=== PATIENT | female | born 2000 | race Caucasian/White ===

== ENCOUNTER 2024-11-25 07:40 | Outpatient (CLI) | payer OTHER, SELFPAY ==
[2024-11-25 07:50] VITALS: RESP 17; BMI 27.8
[2024-11-25 08:07] VITALS: BP 124/64; PULSE 79
[2024-11-25 08:22] VITALS: BP 125/63; PULSE 90
== END 2024-11-25 08:26 | disposition home or self-care (01) ==
LOC: OPOB 07:43 → OBGYN 07:44
PROVIDERS: PCP Family Medicine; Visit Provider Family Medicine
DX: O36.8190 Decreased fetal movements, unspecified trimester, not applicable or unspecified (principal); Z3A.00 Weeks of gestation of pregnancy not specified; R42 Dizziness and giddiness
CPT/HCPCS: 59025; 99211; Q0162

== ENCOUNTER 2024-12-16 21:11 | Outpatient (CLI) | payer OTHER, SELFPAY ==
[2024-12-16 21:16] VITALS: BP 118/70; PULSE 73; RESP 18; TEMP 36.1
[2024-12-16 22:36] VITALS: BP 127/67; PULSE 81
== END 2024-12-16 23:07 | disposition home or self-care (01) ==
LOC: OPOB 21:11 → OBGYN 21:12
PROVIDERS: PCP Family Medicine; Visit Provider Family Medicine
DX: O26.899 Other specified pregnancy related conditions, unspecified trimester (principal); Z3A.00 Weeks of gestation of pregnancy not specified; R10.9 Unspecified abdominal pain
CPT/HCPCS: 59025; 99211

== ENCOUNTER 2024-12-18 12:18 | Outpatient (CLI) | payer OTHER, SELFPAY ==
[2024-12-18 12:20] VITALS: BMI 28.5
[2024-12-18 12:31] VITALS: BP 134/72; PULSE 103
[2024-12-18 12:54] LABS: Nitrazine Paper, PH Negative
[2024-12-18 13:06] VITALS: BP 131/78; PULSE 92
[2024-12-18 13:36] VITALS: BP 124/65; PULSE 79
[2024-12-18 13:45] VITALS: BP 124/65; PULSE 79; RESP 15
== END 2024-12-18 13:48 | disposition home or self-care (01) ==
LOC: OPOB 12:24 → OBGYN 13:41
PROVIDERS: PCP Family Medicine; Visit Provider Family Medicine
DX: O26.899 Other specified pregnancy related conditions, unspecified trimester (principal); Z3A.00 Weeks of gestation of pregnancy not specified; R10.9 Unspecified abdominal pain; N89.8 Other specified noninflammatory disorders of vagina
CPT/HCPCS: 59025; 83986; 99211

== ENCOUNTER 2024-12-22 04:18 | Observation (INO) | payer OTHER, SELFPAY ==
[2024-12-22] VITALS (13 sets, daily range): BP systolic 98–131; BP diastolic 53–88; PULSE 65–93; RESP 16–17; TEMP 35.8–36.4; BMI 29.8
[2024-12-22 05:13] LABS: Hematocrit 34.7 % (36-47); Hemoglobin 11.80 g/dL (11.27-16.99); Mean Corpuscular HGB Conc 34.0 g/dL (30-55); Mean Corpuscular Hemoglobin 31.1 pg (27-33); Mean Corpuscular Volume 91.6 fl (85-98); Nucleated Red Blood Cells % 0 %; Platelet Count 241 10^3/cmm (157-399); Red Blood Count 3.79 10^6/uL (3.85-5.65); White Blood Count 9.51 10^3/uL (3.29-11.43)
--- NOTE | 2024-12-22 10:01 | PM.SDS ---
Short Stay Summary Providers Date of Admit/Discharge: 12/22/24 Attending Provider: Aleja Rosado MD Primary Care Provider: Aleja Rosado MD Chief Complaint: Ctx. 1-2min HPI History of Present Illness Maribel Courtney is a 24 year old female G1, P0 at 38 weeks 5 days gestation who presented to labor and delivery complaining of contractions. She was carlos more frequently about every 1 to 2 minutes when she came in however an hour later she had not made any cervical change. The patient was about 75% effaced and lives an hour away so decision was made to have her walk and recheck again in another hour or 2. At that time nursing felt that she had made cervical change from 1 cm to 2 cm but was still 75% effaced. She was admitted for expectant management. It is now been about 6 hours since she was initially called 2 cm and she is 2 cm 75% effaced -2 station. She rates her pain a 6 out of 10 but does not appear to be in any distress. She is requesting something to eat. I discussed with the patient that since she has not made any cervical change in about 6 hours she is not in active labor. I tried to strip her membranes and we will recheck her in 2 hours to see if there has been any change. If there has not then we will likely need to discharge home. I discussed that since she is only 38 weeks 5 days gestation I cannot start an induction without a medical reason. Her blood pressure has been good and heart tones have been reactive without decelerations. Nursing check the patient about 2 hours later and she was still unchanged from about 8 hours prior. She was determined to be carlos but not in any active labor. She was discharged home. Review of Systems Narrative: Good movement, positive regular contractions, no fever or chills. Home Meds/Allergies Home Medications and Allergies Home Medications ?Medication ?Instructions ?Recorded ?Confirmed ?Type 1 tab PO DAILY 12/16/24 12/16/24 History Allergies Allergy/AdvReac Type Severity Reaction Status Date / Time No Known Allergies Allergy Verified 12/16/24 22:52 PFSH Acute Female Reproductive History: : 1 Vitals/I&O/Wt Last Vital Signs Temp 97.5 F L 12/22/24 07:44 Pulse 67 12/22/24 09:44 Resp 16 12/22/24 05:00 BP 123/58 08/30/25 09:44 O2 Del Method Room Air 12/22/24 03:48 Weight last 48 hrs Weight 76.371 kg Physical Exam Narrative: Alert and oriented, sitting up in bed, no acute distress SVE 2, 75%, -2 station Hospital Course Discharge Summary After not making cervical change for 8 hours the patient was discharged home in good condition. heart tones were reactive. SSS Data Data Completed and Pending: Pending at discharge Category Date Time Status Retype for Callie s ABO/Rh Routine Lab 12/22/24 06:33 Ordered Discharge Plan Discharge Patient Disposition: Home Condition: Stable Prescriptions: Continued 1 tab PO DAILY Discharge Order = DC NOW: Discharge Order (Routine); Ordered 12/22/24 Ordered By: Aleja Rosado Discharge Diet: Usual diet Discharge Activity: Resume usual activity Patient Instructions: Preeclampsia During (DC), Early Labor Signs (DC), Opioid Safety, Patient Portal & Keenan Instructions Attestations Medical Necessity Statement*: The patient initially made cervical change and was admitted for expectant management of labor and delivery. however she remained 2 cm for the next 8 hours, since she is only 38 weeks gestation decision was made to discharge home. Time Spent in Patient Care*: less than 30 min Quality Metrics Clinical Quality Measures: [ No reported AMI, CVA or VTE this stay] Coding Level of Care Code Acute Code for Chg Fwd
--- OUTSIDE RECORDS SUMMARY | 2024-12-23 15:56 | XMS_ITS | Patient Health Record ---
Author Organization [facility] Address [address] [place] [address] Care Team Providers Care Printing Plate Setter Name Role Phone Aleja Ny Primary Care Provider ALEJA [place] Unavailable Unavailable China Moran Unavailable [phone] Allergies Allergen (clinical drug ingredient) Drug/Non Drug Allergy documented on EMR Reaction Allergy Type Onset Date Status Information temporarily unavailable No Known Drug Allergy Unknown Drug Allergy Active Results Component Value Reference Range Notes Influenza A/B PCR-- 73794 Reviewed date:05/28/2024 01:05:14 PM Interpretation: Performing Lab: Notes/Report: Influenza B PCR negative Influenza A PCR positive Reason For Referral No Information Medications Medication SIG (Take, Route, Frequency, Duration) Notes Start Date End Date Status Oseltamivir Phosphate 75 MG Capsule 1 capsule Orally Twice a day; Duration: 5 days 05/24/2024 Active Immunizations Vaccine Route Administration Date Status Comme nts Tuberculin PPD IM Intramuscular 09/05/2023 Administered Social History Tobacco Use: Social History Observation Description Date Details (start date - stop date) Never Smoker NA - NA Social History Depression Screening Social Info Question Answer Notes PHQ-9 Little interest or pleasure in doing thin gs Not at all Feeling down, depressed, or hopeless Not at all Trouble falling or staying asleep, or sleeping t oo much Not at all Feeling tired or having little energy Not at all Poor appetite or overeating Not at all Feeling bad about yourself, or that you are a failure, or have let yourself or your family down Not at all Trouble concentrating on thi ngs, such as reading the newspaper or watching television Not at all Moving or speaking so slowly that other people could have noticed. Or the opposite ? being so fidgety or restless that you have been moving around a lot more than usual Not at all Thoughts that you would be b samira off , or of hurting yourself in some way Not at all Total Score 0 Drugs/Alcohol: Social Info Question Answer Notes Alcohol Screen (Audit-C) Did you have a drink containing alcohol in the past year? Yes How often did you have a drink containing alcohol in the past year? 2 to 3 times a week (3 points) Points 3 Interpretation Positive Tobacco Use: Social Info Question Answer Notes xTobacco Use/Smoking Are you a nonsmoker Are you a nonsmoker Section Notes: 01/18/23 PHQ9 01/18/23 PHQ9 05/24/2024 PHQ9 Problems Problem Type SNOMED Code ICD Code Onset Dates Problem Status W/U Status Risk Notes Problem Information temporarily unavailable Migraine without aura and without status migrainosus, not intractable (G43.009) Active confirmed Problem Information temporarily unavailable Eye exam abnormal (H57.9) Active confirmed Vital Signs Heart Rate 87 /min 05/24/2024 Temperature 97.4 degrees Fahrenheit 05/24/2024 Respiratory Rate 18 /min 05/24/2024 Blood pressure diastolic 68 mm Hg 05/24/2024 Height-cm 160.02 cm 05/24/2024 Oximetry 99 % 05/24/2024 Weight-kg 70.31 kg 05/24/2024 Height 63 in 05/24/2024 Blood pressure systolic 116 mm Hg 05/24/2024 Weight 155 lbs 05/24/2024 BMI 27.45 kg/m2 05/24/2024 Encounters Encounter Location Date Provider Diagnosis [facility] Office [address] [place] [address] 05/24/2024 Aleja Ny Influenza A J10.1 and Depression screen Z13.[address] [place] [address] 02/06/2024 China Moran Assessments Encounter Date Diagnosis (ICD Code) Assessment Notes Treatment Notes Treatment Clinical Notes Section Notes 05/24/2024 Influenza A (ICD-10 - J10.1) Increase fluids, take medication as directed. RTC if no improvement with treatment. 05/24/2024 Depression screen (ICD-10 - Z13.31) Plan Of Treatment No Information Insurance Providers Payer Name Payer Address Payer Phone Subscriber Number Group Number Insured Name Patient Relationship to Insured Coverage Start Date Coverage End Date [facility] [employer] [address] [address] [place] [address] [id number] Sherwin Maribel Self - patient is the insured [facility] [email or web address] [address] [place] [address] [phone] [id number] Self - patient is the insured Medical (General) History Medical History History ICD Code migraine headaches H. Pylori endometriosis undefined headaches Hpylori Surgical History Surgery Date(Month/Year) surgical repair of endometriosis ankle surgery Left ankle fracture s/p ORIF Hospitalization History Reason Date(Month/Year) rotavirus see surgical history.
--- OUTSIDE RECORDS SUMMARY | 2024-12-23 15:56 | XMS_ITS | Encounter Summary ---
Author Organization [facility] Address [address] [place] [address] Care Team Providers Care Mechanical System Technician Name Role Phone Unavailable Primary Care Provider Unavailabl e Encounter Details Date Type Department Care Team ([facility] st Contact Info) Description 08/10/2023 Outside Records [facility] [address] [place] [address] Interface, Provider Social History Tobacco Use Types Packs/Day Years Used Date Smoking Tobacco: Never Passive Smoke Exposure: Never Smokeless Tobacco: Never Alcohol Use Standard Drinks/Week Comments Yes 0 (1 standard drink = 0.6 oz pur e alcohol) Social drinker Comments Unknown Sex and Gender Information Value Date Recorded Sex Assigned at Female 07/06/2023 8:52 AM CDT Legal Sex Female 8:45 AM CDT Gender Identity Female 07/06/2023 8:52 AM CDT Sexual Orientation Straight 07/06/2023 8: 52 AM CDT documented as of this encounter Plan of Treatment Not on file documented as of this encounter Visit Diagnoses Not on filedocumented in this encounter
--- OUTSIDE RECORDS SUMMARY | 2024-12-23 15:56 | XMS_ITS | Encounter Summary ---
Author Organization [facility] Address [address] [place] [address] Care Team Providers Care Ocean Rescue Lieutenant Name Role Phone Unavailable Primary Care Provider Unavailabl e Encounter Details Date Type Department Care Team ([facility] st Contact Info) Description 09/08/2023 Outside Records [facility] [address] [place] [address] Interface, Provider Social History Tobacco Use Types Packs/Day Years Used Date Smoking Tobacco: Never Passive Smoke Exposure: Never Smokeless Tobacco: Never Alcohol Use Standard Drinks/Week Comments Yes 0 (1 standard drink = 0.6 oz pur e alcohol) Social drinker Health Literacy Answer Date Recorded Health Literacy 1 08/18/2023 Comments No Sex and Gender Information Value Date Recorded Sex Assigned at Female 07/06/2023 8:52 AM CDT Legal Sex Female 8:45 AM CDT Gender Identity Female 07/06/2023 8:52 AM CDT Sexual Orientation Straight 07/06/2023 8: 52 AM CDT COVID-19 Exposure Response Date Recorded In the last 10 days, have yo u been in contact with someone who was confirmed or suspected to have Coronavirus/COVID-19? No / Unsure 08/18/2023 11:54 AM CDT documented as of this encounter Plan of Treatment Not on file documented as of this encounter Visit Diagnoses Not on filedocumented in this encounter
--- OUTSIDE RECORDS SUMMARY | 2024-12-23 15:56 | XMS_ITS | Encounter Summary ---
Author Organization [facility] Address [address] [place] [address] Care Team Providers Care Shuttle Hand Name Role Phone Unavailable Primary Care Provider Unavailabl e Encounter Details Date Type Department Care Team ([facility] st Contact Info) Description 03/15/2023 Outside Records [facility] [address] [place] [address] Interface, Provider Social History Tobacco Use Types [...]
--- OUTSIDE RECORDS SUMMARY | 2024-12-23 15:56 | XMS_ITS | Clinical Summary ---
Author Organization [facility] Address [address] [place] [address] Care Team Providers Care Senior Bioinformatics Specialist Name Role Phone Unavailable Primary Care Provider Unavailabl e Allergies No known active allergies Medications multivitamin 27-1 mg Tab Take one tablet by mouth daily. Active incobotulinumtox Tara 100 unit SolR 100 Units for 1 dose 100 Units 11 08/22/2023 3:47 PM CDT 08/18/19 24 Active Xeomin Wastage, 100 Unit Vial,Indications :Cervical dystonia Prescription is for billing of Xeomin wastage. 25 Units 12/10/19 24 Active diazePAM (VALIUM) 2 MG tabletIndication s:Cervical dystonia,Vasovag al near syncope Take two tablets (4 mg) by mouth every 8 (eight) hours as needed for anxiety (take for musclel spasm, bruxism, jaw spasm, prior to injection for anxiety, may take 1 or 2 tablets). 30 tablet 5 12/09/19 24 025 Active Problems Problem Noted Date Diagnosed Date Chronic daily headache 03/07/2023 Overview (12/10/2023): Images from the original note were not included. response/Hx (if applicable): How long do your headaches usually last (without medicine)? Please check your best guess of time. 3 hours to 6 hours In the last 3 months, how many days per week have you had a headache? Please check your best guess of time. Month 1: 3 to 4 times a week Month 2: 3 to 4 times a week Month 3: 3 to 4 times a week In the last 3 months, how many days per week of those headaches were severe headaches or migraines? Month 1: Once a week or less Month 2: 1 to 2 times a week Month 3: Once a week or less What is the least amount of pain you feel from your headaches on a scale of 1 to 10? 1 What is the most amount of pain you feel from your headaches on a scale of 1 to 10? 5 How does the pain feel when you have a headache? Please check all that apply. Pressure Stabbing Tight band Dull ache Have you been using Botox (OnabotulinumtoxinA) for your headaches? Yes Has it been helping to control your heacaches? Yes How much relief have you received since your last Botox injection? 10%-50% relief Has Botox Injections reduced the number of headaches you have per month, if so how many? I am still having greater than 15 headaches per month Have you been receiving Nerve Block or Trigger Point Injections for your Headaches? No Have you taken Aimovig (Erenumab-aooe) to control your headaches? Yes What was the outcome? Tried and failed Please enter the dosage, duration, and any side effects. 80 mg; this worked really well stopped taking while trying to get Have you take Ajovy (Fremanezumab-vfrm) to control your headaches? No Have you taken Emgality (Galcanezumab-gnlm) to control your headaches? No Have you taken Amitriptyline (Amitid, Amitril, Elavil, Endep) to control your headaches? No Have you taken Effexor (Vensir, Vencarm, Venlalix, Efexor, Venlablue) to control your headaches? No Have you taken nortriptyline (Pamelor, Aventyl) to control your headaches? No Have you taken Wellbutrin (Bupropion Hydrochloride) to control your headaches? No Have you taken Doxepin (Sinequan) to control your headaches? No Have you taken Gabapentin (Neurontin) to control your headaches? No Have you taken Topamax (Topiramate) to control your headaches? Yes What was the outcome? Tried and failed Please enter the dosage, duration, and any side effects. unknown Have you taken Zonisamide (Zonegran) to control your headaches? No Have you taken Depakote (Divalproex Sodium) to control your headaches? No Have you taken Keppra (Levetiracetam) to control your headaches? No Have you taken Lamictal (Lamotrigine) to control your headaches? No Have you taken Metoprolol (Lopressor, Toprol XL) to control your headahces? Yes What was the outcome? Tried and failed Please enter the dosage, duration, and any side effects. unknown Have you taken Propranolol (Inderal, Innopran XL) to control your headaches? Yes What was the outcome? Tried and failed Please enter the dosage, duration, and any side effects. unknown Have you taken Verapamil (Isoptin, Calan SR, Covera, Verelan) to control your headaches? Yes What was the outcome? Tried and failed Please enter the dosage, duration, and any side effects. unknown Have you taken Triptans (Zolmitriptan, Rizatriptan, Sumatriptan, Imitrex, Frovatriptan, Naratriptan, Eletriptan, Almotriptan, Zembrance, Zomig, Tosymra, Alsuma, Onzetra Xsail) to control your headaches? Yes What was the outcome? Tried and failed Please enter the dosage, duration, and any side effects. unknown dosage; made headaches severely worse Have you taken DHE (Dihydroergotamine) to control your headaches? No Have you taken Fioricet (Butalbital,Acetaminophen & Caffeine) to control your headaches? No Hve you taken Ubrelvy/Nurtec (Ubrogepant/Rimegepant) to control your headaches? No Have you taken Qulipta to control your headaches? No Have you taken Reyvow (Lasmiditan) to control your headaches? No Estimated Date of Delivery Comme nts Yes 12/31/2024 Family History Medical History Relation Comments Diabetes Father Thyroid disease Maternal Aunt Cataracts Maternal Grandmother Hypertension Maternal Grandmother Macular degeneration Maternal Grandmother Cancer Paternal Grandmother Relation Status Comments Father Maternal Aunt Maternal Grandmother Paternal Grandmother Social History Tobacco Use Types Packs/Day Years Used Date Smoking Tobacco: Never Passive Smoke Exposure: Never Smokeless Tobacco: Never Tobacco Cessation:Counseling Given: Not Answered Alcohol Use Standard Drinks/Week Comments Yes 0 (1 standard drink = 0.6 oz pur e alcohol) Social drinker Social Connection and Isolat ion Panel [NHANES] Answer Date Recorded In a typical week, how many times do you talk on the phone with family, friends, or neighbors? More than three times a week 12/08/2023 How often do you get togethe r with friends or relatives? Twice a week 12/08/2023 How often do you attend chur or voodoo services? More than 4 times per year 12/08/2023 Do you belong to any clubs o r organizations such as religious groups, unions, fraternal or athletic groups, or school groups? Yes 12/08/2023 How often do you attend meet ings of the clubs or organizations you belong to? More than 4 times per year 12/08/2023 Are you , , di vorced, , never , or living with a partner? 12/08/2023 AUDIT-C Answer Date Recorded Q1: How often do you have a drink containing alc ohol? Monthly or less 12/08/2023 Q2: How many drinks containi ng alcohol do you have on a typical day when you are drinking? 1 or 2 12/08/2023 Q3: How often do you have si x or more drinks on one occasion? Never 12/08/2023 Overall Financial Resource Strain (CARDIA) Answe r Date Recorded How hard is it for you to pa y for the very basics like food, housing, medical care, and heating? Not very hard 12/08/2023 [facility] - Occupational Stress Questionnaire Answer Date Recorded Do you feel stress - tense, restless, nervous, or anxious, or unable to sleep at night because your mind is troubled all the time - these days? Rather much 12/08/2023 Exercise Vital Sign Answer Date Recorde d On average, how many days pe r week do you engage in moderate to strenuous exercise (like a brisk walk)? 2 days 12/08/2023 On average, how many minutes do you engage in exercise at this level? 50 min 12/08/2023 Hunger Vital Sign Answer Date Recorded Within the past 12 months, y ou worried that your food would run out before you got the money to buy more. Never true 08/15/20 24 Within the past 12 months, t he food you bought just didn't last and you didn't have money to get more. Never true 12/08/2023 PRAPARE - Transportation Answer Date Re corded In the past 12 months, has l ack of transportation kept you from medical appointments or from getting medications? No 11/23 In the past 12 months, has l ack of transportation kept you from meetings, work, or from getting things needed for daily living? No 12/08/2023 Housing Stability Vital Sign Answer [facility] Recorded In the last 12 months, was t here a time when you were not able to pay the mortgage or rent on time? No 12/08/2023 In the last 12 months, how many places have you lived? 1 12/08/2023 In the last 12 months, was t here a time when you did not have a steady place to sleep or slept in a jail (including now)? No 12/08/2023 Health Literacy Answer Date Recorded Health Literacy 1 08/18/2023 Estimated Date of Delivery Comme nts Yes 12/31/2024 Sex and Gender Information Value Date Recorded Sex Assigned at Female 07/06/2023 8:52 AM CDT Legal Sex Female 8:45 AM CDT Gender Identity Female 07/06/2023 8:52 AM CDT Sexual Orientation Straight 07/06/2023 8: 52 AM CDT Last Filed Vital Signs Vital Sign Reading Time Taken Comments Blood Pressure 119/67 09/11/2024 10:16 AM CDT Pulse 72 09/11/2024 10:16 AM CDT Temperature 36.3 C (97.3 F) 09/11/2024 10:16 AM CDT Respiratory Rate 20 07/08/2023 8:35 AM CDT Oxygen Saturation 100% 09/11/2024 10:16 AM CDT Inhaled Oxygen Concentration - - Weight 70.9 kg (156 lb 6.4 oz) 09/11/2024 10:16 AM CDT Height 160 cm (5' 3 ) 09/11/2024 10:16 AM CDT Body Mass Index 27.71 09/11/2024 10:16 AM CDT Plan of Treatment Health Maintenance Due Date Last Done Comments Hepatitis C Screening 1998 Anxiety Screening 2006 HIV Screening 2013 HPV Vaccines (1 - 3-dose series) 2013 Depression Screening 2016 Cervical Cancer Screening (21-29) 12/16/2019 Pap Smear 12/16/2019 COVID-19 Vaccine (1 - 2023- season) 2023 Influenza Series (#1) 2024 02/22/2023, 021 TDAP/DTaP/TD Vaccines (8 - Td or Tdap) 10/29/2030 10/29/2020, 08/24/2010, 12/03/2003, Additional history exists Hepatitis B Vaccine Completed 09/08/1999, 08/11/1999, 06/09/1999, Additional history exists Meningococcal B Vaccine Aged Out No l onger eligible based on patient's age to complete this topic Pneumococcal Vaccine 0-50 years Aged Out No longer eligible based on patient's age to complete this topic Respiratory Syncytial Virus (RSV) Immunization - pts and pts aged 60 yrs+ (No Doses Required) Completed Insurance [id number] [facility] Member Subscriber Plan / Payer (Ef fective 2023-Present) Name:Maribel Wilson Relation to Subscriber:Self Name:Marbiel Wilson Payer ID:[id number] (NAIC) Type:Not on file Address: [place] [id number] [address] * Guarantor: LEWIS SANCHEZ Account Type Relation to Patient Date of Phone Billing Address Personal/Family [address] [place] [address]
== END 2024-12-22 12:50 | disposition home or self-care (01) ==
LOC: OPOB 04:19 → OBGYN 04:25
PROVIDERS: Admitting Provider Family Medicine; PCP Family Medicine; Visit Provider Family Medicine
DX: O26.893 Other specified pregnancy related conditions, third trimester (principal); Z3A.38 38 weeks gestation of pregnancy; R10.9 Unspecified abdominal pain; N89.8 Other specified noninflammatory disorders of vagina
CPT/HCPCS: 36415; 59025; 85025; 86850; 86900; 99211; G0378

== ENCOUNTER 2024-12-27 11:28 | Inpatient (IN) | payer OTHER, SELFPAY ==
[2024-12-27] VITALS (78 sets, daily range): BP systolic 107–157; BP diastolic 54–101; PULSE 67–116; RESP 16–17; TEMP 35.8–36.9; O2SAT 86–100; BMI 29.5
--- OUTSIDE RECORDS SUMMARY | 2024-12-27 11:31 | XMS_ITS | Encounter Summary ---
Author Organization [facility] Address [address] [place] [address] Care Team Providers Care Institutional Research Coordinator Name Role Phone Unavailable Primary Care Provider Unavailabl e Encounter Details Date Type Department Care Team ([facility] st Contact Info) Description 03/15/2023 Outside Records [facility] [address] [place] [address] Interface, Provider Social History Tobacco Use Types [...]
--- OUTSIDE RECORDS SUMMARY | 2024-12-27 11:31 | XMS_ITS | Encounter Summary ---
Author Organization [facility] Address [address] [place] [address] Care Team Providers Care Manager Of Application Development Name Role Phone Unavailable Primary Care Provider Unavailabl e Encounter Details Date Type Department Care Team (Late st Contact Info) Description 08/10/2023 Outside Records [facility] [address] [place] [address] Interface, Provider Social History Tobacco Use Types [...]
--- OUTSIDE RECORDS SUMMARY | 2024-12-27 11:31 | XMS_ITS | Clinical Summary ---
Author Organization [facility] Address [address] [place] [address] Care Team Providers Care Post Acute Care Nurse Name Role Phone Unavailable Primary Care Provider [...] How often do you attend chur or yazidi services? More than 4 times per year 12/08/2023 Do you belong to any clubs o r organizations such as zoroastrianism groups, unions, fraternal or athletic groups, or [...] care, and heating? Not very hard 12/08/2023 [facility] - Occupational Stress [...] place to sleep or slept in a longterm (including now)? No 12/08/2023 Health Literacy Answer [...] 60 yrs+ (No Doses Required) Completed Insurance [employer] [facility] Member Subscriber Plan / Payer (Ef fective 2023-Present) Name:Maribel Wilson Relation to Subscriber:Self Name:Maribel Wilson Payer ID:[id number] (NAIC) Type:Not on file Address: [place] [id number] * Guarantor: LEWIS SANCHEZ Account Type Relation to Patient Date of Phone Billing Address Personal/Family [address] [place] [address]
--- OUTSIDE RECORDS SUMMARY | 2024-12-27 11:31 | XMS_ITS | Patient Health Record ---
Author Organization [facility] Address [address] [place] [address] Care Team Providers Care Landscape Laborer Name Role Phone Aleja Ny Primary Care Provider ALEJA [place] Unavailable Unavailable China Moran Unavailable [phone] Allergies Allergen (clinical drug ingredient) Drug/Non Drug Allergy documented on EMR Reaction Allergy Type Onset Date Status No Known Drug Allergy Unknown Drug Allergy Active Results Component Value Reference Range Notes Influenza A/B PCR-- [id number] Reviewed date:05/28/2024 01:05:14 PM Interpretation: Performing Lab: [...] Problem Status W/U Status Risk Notes Problem Migraine without aura, not refractory ([id number]) Migraine without aura and without status migrainosus, not intractable (G43.009) Active confirmed Problem Eye exam abnormal (H57.9) Active confirmed Vital [...] 05/24/2024 Encounters Encounter Location Date Provider Diagnosis [facility] [address] [facility] [address] [place] [address] 05/24/2024 Aleja Ny Influenza A J10.1 and Depression screen Z13.[address] [place] [address] 02/06/2024 China Moran Assessments Encounter Date Diagnosis [...] Insured Coverage Start Date Coverage End Date [place] [employer] [address] [address] [place] [address] [id number] Maribel Courtney Self - patient is the insured [facility] [employer] [address] [place] [phone] [id number] [facility] Maribel Courtney Self - patient is the insured Medical (General) History Medical History History ICD Code migraine headaches H. Pylori endometriosis undefined headaches Hpylori Surgical History Surgery Date(Month/Year) ankle surgery Left ankle fracture s/p ORIF surgical repair of endometriosis Hospitalization History Reason Date(Month/Year) rotavirus see surgical history.
--- OUTSIDE RECORDS SUMMARY | 2024-12-27 11:31 | XMS_ITS | Encounter Summary ---
Author Organization [facility] Address [address] [facility] [place] [address] Care Team Providers Care Field Tax Auditor Name Role Phone Unavailable Primary Care Provider Unavailabl e Encounter Details Date Type Department Care Team ([facility] st Contact Info) Description 09/08/2023 Outside Records [facility] [address] [facility] [place] [address] Interface, Provider Social History Tobacco Use Types [...]
[2024-12-27] MEDS: oxytocin 30 UNIT/500 ML BAG IV (12:13)
[2024-12-27 12:44] LABS: Hematocrit 36.5 % (36-47); Hemoglobin 12.60 g/dL (11.27-16.99); Mean Corpuscular HGB Conc 34.5 g/dL (30-55); Mean Corpuscular Hemoglobin 31.9 pg (27-33); Mean Corpuscular Volume 92.4 fl (85-98); Nucleated Red Blood Cells % 0 %; Platelet Count 242 10^3/cmm (157-399); Red Blood Count 3.95 10^6/uL (3.85-5.65); White Blood Count 9.67 10^3/uL (3.29-11.43)
[2024-12-27 13:24] LABS: PCP Screen Urine Negative (Negative)
[2024-12-27] MEDS: ROPivacaine premix 200 MG/100 ML PREMIX 10 MG EPIDURAL (14:14)
--- NOTE | 2024-12-27 15:03 | ANES.PREANE2 ---
Pre-Anesthetic Assessment Height/Weight: Height 1.57 m Weight 73.255 kg Temp Pulse BP Pulse Ox O2 Del Method 97.0 F L 74 133/59 100 Room Air 12/27/24 14:14 12/27/24 14:58 12/27/24 14:58 12/27/24 14:56 12/27/24 12:22 Preop Diagnosis: IUP Epidural Familial anesthetic complications: none Social No alcohol and No tobacco Exam alert, oriented x 3, clear to auscultation bilaterally and regular rate & rhythm Anesthetic Plan ASA status: 2 Anesthesia: Regional (specify below) Risk of > 500 ml blood loss (7ml/kg in children): Yes, adequate IV access and fluids planned Medications/Allergies Home Medications ?Medication ?Instructions ?Recorded ?Confirmed ?Last Taken ?Type 1 tab PO DAILY 12/16/24 12/16/24 12/16/24 History Allergies Allergy/AdvReac Type Severity Reaction Status Date / Time No Known Allergies Allergy Verified 12/16/24 22:52 Current Medications Generic Name Dose Route Start Last Admin Trade Name Janice PRN Reason Stop Dose Admin Dextrose/Lactated Ringer's 1,000 mls @ 125 mls/hr 12/27/24 11:45 12/27/24 13:25 Dextrose 5%-Lactated Ringers IV 0 mls/hr .Q8H RICARDO Infusion Oxytocin 30 unit in 500 mls @ 2 mls/hr 12/27/24 12:00 12/27/24 13:00 Pitocin IV 8 milliunit/min .Q24H RICARDO 8 mls/hr Protocol Titration 2 MILLIUNIT/MIN Lactated Ringer's 1,000 mls @ 999 mls/hr 12/27/24 13:19 12/27/24 14:19 Lactated Ringers IV 999 mls/hr .Q1H1M PRN Administration See label comments Ropivacaine 200 mg in 100 mls @ 10 mls/hr 12/27/24 13:30 12/27/24 14:14 Naropin Premix EPIDURAL 10 mls/hr .Q10H RICARDO Administration PFSH Anesthesia Female Reproductive History : 1 Data Anesthesia 12/27/24 11:50 Short CBC 12/27/24 Range/Units 11:50 WBC 9.67 (3.29-11.43) 10^3/uL Hgb 12.60 (11.27-16.99) g/dL Hct 36.5 (36-47) % MCV 92.4 (85-98) fl Plt Count 242 (157-399) 10^3/cmm Neut % (Auto) 77.1 % Neut # (Auto) 7.45 (1.8-7.7) 10^3/uL Blood Bank 12/27/24 11:50 Blood Type B Positive Rho(D) Type Rh positive Antibody Screen Negative Anesthesia Procedures Epidural Time Out Performed: Yes Consents Signed: Procedure Consent Consent: requested by attending/covering physician, from patient, from other, risks and benefits reviewed and patient agrees to proceed Lumbar Level: L2-L3 Epidural position: sitting Epidural procedure: sterile prep of area, 1% lidocaine to numb the area, 18 g needle, negative for paresthesia passed, neg for paresthesia, test dose given, 1.5% xylocaine 1:200k epi (5), 0.2% Ropivacaine bolus ml (5), placed PCEA, no systemic response, sterile dressing applied, L.U.D. no apparent complications and 0.2% Ropiavacaine @ mls/hr (13) Additional Comments: First attempt at catheter placement led to aspiration of heme. Removed catheter. 2nd attempt placed with success and patient reported only mild pain in her back with next contraction after test dose and bolus dose via pump. Then 20 minutes later was called back, saying the epidural wasn't working on the right side at all. Positioning and bolus dose hadn't worked. I pulled back on catheter 1cm and hand bolused bupivicaine 0.25% 10 cc via epidural with no relief on right side. Asked patient if she'd like replacement and she affirmed she would like it to be replaced. Third attempt successful one interspace higher than previous catheter. Patient stating this one working better now on both sides.
[2024-12-27] MEDS: ondansetron 2 mg/ML SDV 2 mL 4 MG IVP (15:37)
--- NOTE | 2024-12-27 18:43 | PM.OPHPUD ---
Labor & Delivery H&P Update Date of Procedure: December 27, 2024 Date H&P Performed: 12/25/24 Admission Diagnosis: Elective induction IUP at 39 weeks 3 days gestation Planned procedure: Induction of labor and delivery
[2024-12-27] MEDS: citric acid-sodium citrate 30 mL UDC PO (20:15)
[2024-12-27] MEDS: metoclopramide 5 mg/mL SDV 2 mL 10 MG IVP (20:15)
[2024-12-27] MEDS: ROPivacaine premix 200 MG/100 ML PREMIX 13 MG EPIDURAL (20:15)
[2024-12-27] MEDS: tranexamic acid 1,000 MG/100 ML PREMIX 600 MG IV (21:00)
--- NOTE | 2024-12-27 21:00 | PC.NURSE ---
TXA TXA administered by anesthesia provider in OR @ [address] Rosado's orders.
--- NOTE | 2024-12-27 22:11 | PM.OP ---
Operative Report Date of procedure: December 27, 2024 Pre-op diagnosis: Failure to descend Post-op diagnosis: Failure to descend Procedure done: Primary low-transverse section via Pfannenstiel skin incision Specimens removed/disposition: Vertex male infant weight 3095 g, 6 pounds 13 ounces, Apgars 8 and 9 Surgeon: Aleja Rosado MD Estimated blood loss (mL): 900 IV fluids (mL): 2,500 Urine output (mL): 100 Complications: Hematuria Brief History: This is a 24-year-old G1, P0 at 39 weeks 3 days gestation who got to complete/complete/0. She pushed for approximately 2 hours with good effort but minimal progress. Decision was made to proceed with section for failure to descend Procedure: The patient was taken to the OR where her epidural anesthesia was deemed not effective. Therefore she was given general anesthesia. A Pfannenstiel skin incision was made and carried through to the underlying layer of fascia sharply. The fascial incision was extended laterally using the Pelletier's. The fascia was grasped with Nasir clamps and the underlying rectus muscles were dissected off taking care to avoid injury to the underlying tissue. The peritoneum was entered bluntly and the incision site was manually stretched. The bladder blade was inserted. The vesicouterine peritoneum was very edematous and was entered sharply using the Metzenbaums. The bladder flap was created digitally and the bladder blade was reinserted. Uterine incision was made in a transverse fashion in the lower uterine segment. Amniotic rupture membranes was performed digitally with clear fluid. The infant was delivered in vertex presentation with bulb suction of the mouth and naris at delivery. The cord was clamped and cut and he was handed to the waiting pediatric team. The placenta was delivered using fundal pressure. The uterus was then exteriorized from the abdomen and a dry sponge was used to clear the uterus of clots and debris. The uterus was rather floppy and was briskly bleeding. The uterine incision was repaired using 0 chromic in a running locked fashion. The lower uterine segment was still rather floppy so 20 units of Pitocin was injected into the body of the uterus. At this time anesthesia pointed out that the Barroso catheter urine had turned bloody. We inspected the vesicouterine peritoneum and palpated the Barroso bulb through the bladder wall. We did not find any obvious lacerations. 60 mL of saline with methylene blue was injected through the Barroso catheter and there was no leakage of the dye within the peritoneal cavity. The uterus was returned to the abdomen and irrigation was used to clear the gutters of clots and debris. The uterine incision was inspected for hemostasis. The peritoneum was reapproximated using 4-0 Vicryl in a running fashion. At this time I was reminded by the surgical training specialist that we did not complete the second layer on the uterine incision. The peritoneal suture was snipped and the uterus was again exteriorized from the abdomen. A second layer of 0 chromic was used in an imbricating manner on the uterine incision. Good hemostasis was obtained. The uterus was returned to the abdomen. Irrigation was used to clear the gutters of clots and debris. Uterine incision was reinspected for hemostasis. There was some bleeding from the right aspect and 2 [id number] sutures of 0 chromic were placed. In general her tissues had just become a little bit more oozy. Decision was made to start transexemic acid infusion. Pressure was also applied to the incision and hemostasis was obtained. Hemostasis was obtained. The peritoneum was then reapproximated using 4-0 Vicryl in a running fashion. The rectus muscles were gently approximated using 4-0 Vicryl in an interrupted fashion. The subfascial tissue was inspected for hemostasis and the fascia was then reapproximated using 0 Vicryl in a running fashion. The subcutaneous tissue was irrigated and any small bleeders were coagulated using the Bovie. The subcutaneous tissue was then reapproximated using 4-0 Vicryl in a running fashion. The skin was then reapproximated using 4-0 Vicryl in a running fashion on a Kieran needle. Steri-Strips and a pressure bandage were applied and patient went to recovery in good condition. She was awakened in the OR. Sponge instrument and needle counts were correct.
[2024-12-28] VITALS (16 sets, daily range): BP systolic 104–128; BP diastolic 56–75; PULSE 80–100; RESP 16; TEMP 36.4–36.7; O2SAT 97
--- NOTE | 2024-12-28 10:58 | P.PN_ITS ---
Subjective 2 Subjective: Around 13 hours postoperative primary for failure to descend. She has been ambulating, pain is controlled, she has not yet passed flatus Vitals/I&O/Wt Last Vital Signs Temp 97.5 F L 12/28/24 03:20 Pulse 85 12/28/24 06:20 Resp 17 12/27/24 18:09 BP 116/57 12/28/24 06:20 Pulse Ox 99 12/27/24 22:35 O2 Del Method Room Air 12/27/24 12:22 12/27/24 12/28/24 12/28/24 22:59 06:59 14:59 Intake Total 1272 / 2363.500 2500 / 4863.500 Output Total 100 / 100 192 / 2024 Balance 1172 / 2263.500 575 / 2838.500 Weight last 48 hrs Weight 73.255 kg Physical Exam 2 Narrative: Alert and oriented, sitting up in bedside chair. Heart regular rate and rhythm, lungs clear to auscultation bilaterally, slightly hypoactive bowel sounds, pressure bandage is still clean dry and in place. Extremities have 1+ edema but no calf tenderness Urinary Catheter Management: Barroso Latex: Cath Placed During This Visit: yes, but has since been removed by the nurse Reason for Continuing Indwelling Catheter: Perioperative Use in Selected Surgeries Urinary Catheter Date of Insertion: 12/27/24 Urinary Catheter Time of Insertion: 20:00 Date Urinary Catheter Removed: 12/28/24 Time Urinary Catheter Discontinued: 01:05 Data 12/27/24 11:50 A&P Assessment and plan 1. Status post primary low transverse section: Postop about 13 hours status post primary low-transverse section for failure to descend. Doing well. Continue routine postoperative care PDMP PDMP Reviewed: Not Reviewed Attestations 2 Medical Necessity Statement*: Routine postoperative and care Coding Level of Care Code Acute Code for Chg Fwd Diagnoses Status post primary low transverse section Z98.891
[2024-12-28 12:01] LABS: Hematocrit 25.1 % (36-47); Hemoglobin 8.40 g/dL (11.27-16.99); Mean Corpuscular HGB Conc 33.5 g/dL (30-55); Mean Corpuscular Hemoglobin 31.5 pg (27-33); Mean Corpuscular Volume 94.0 fl (85-98); Platelet Count 225 10^3/cmm (157-399); Red Blood Count 2.67 10^6/uL (3.85-5.65); White Blood Count 13.24 10^3/uL (3.29-11.43)
[2024-12-28] MEDS: ferrous sulfate EC 325 mg Tablet PO (17:13)
--- NOTE | 2024-12-29 00:07 | PC.NURSE ---
THIS RN INSTRUCTED PATIENT TO TAKE SHOWER AROUND 203912/28/24. PATIENT DID INSTRUCTED AND DRESSING WAS REMOVED. RN OBSERVED WOUND AND FOUND IT TO BE DRY, INTACT, WITH NO REDNESS.
[2024-12-29 04:15] VITALS: BP 102/56; PULSE 84; RESP 16; TEMP 36.8; O2SAT 98
[2024-12-29] MEDS: PRENATAL VIT NO.130/IRON/FOLIC 1 EACH TABLET PO (09:37)
[2024-12-29 09:46] VITALS: BP 123/63; PULSE 100
[2024-12-29 09:50] VITALS: TEMP 36.9
--- NOTE | 2024-12-29 10:53 | ANE.PACU2 ---
Inpatient post-anesthesia follow up: Airway intact: Yes Vital signs: Temperature 98.5 F Pulse Rate 100 Respiratory Rate 16 Blood Pressure 123/63 Pulse Oximetry 98 Oxygen Delivery Me thod Room Air Oxygen Flow Rate Fraction of Inspir ed Oxygen Hydration adequate: Yes Nausea and vomiting: No Pain level: 1 Mental status: Baseline Epidural Start/End: Epidural Start Date: 12/27/24 Epidural Start Time: 14:00 Epidural End Date: 12/28/24 Epidural End Time: 01:28
--- NOTE | 2024-12-29 11:43 | P.DS_ITS ---
Discharge Providers Date of Admission: 12/27/24 11:28 Date of Discharge: December 29, 2024 Attending Provider at Admission: Aleja Rosado MD Attending Provider at Discharge: Aleja Rosado MD Primary Care Provider: Aleja Rosado MD Diagnoses at Discharge Discharge Diagnosis 1. Status post primary low transverse section: Reason for Visit Reason for Visit: IOL Hospital Course Hospital Course This is a 24-year-old G1 now P1 who had a primary section for failure to descend. Her blood count did drop from 12.6-8.4 but she has done well. She is ambulating, tolerating a regular diet, has good pain control and decreased vaginal bleeding. She is comfortable with discharge home. Physical Exam Narrative: Alert and oriented, sitting up in bed, abdomen is soft with appropriate postoperative tenderness, incision is clean dry and intact, extremities have 1+ edema but no calf tenderness Urinary Catheter Management: Barroso Latex: Cath Placed During This Visit: yes, but has since been removed by the nurse Reason for Continuing Indwelling Catheter: Decision to DC Catheter Urinary Catheter Date of Insertion: 12/27/24 Urinary Catheter Time of Insertion: 20:00 Date Urinary Catheter Removed: 12/28/24 Time Urinary Catheter Discontinued: 15:16 Discharge Data Studies Completed and Pending Laboratory Results WBC 13.24 10^3/uL (3.29-11.43) H 12/28/24 11:28 RBC 2.67 10^6/uL (3.85-5.65) L 12/28/24 11:28 Hgb 8.40 g/dL (11.27-16.99) L D 12/28/24 11:28 Hct 25.1 % (36-47) L D 12/28/24 11:28 MCV 94.0 fl (85-98) 12/28/24 11:28 MCH 31.5 pg (27-33) 12/28/24 11:28 MCHC 33.5 g/dL (30-55) 12/28/24 11:28 RDW 13.7 % (12.1-15.1) 12/28/24 11:28 Plt Count 225 10^3/cmm (157-399) 12/28/24 11:28 MPV 11.7 fL (7.4-10.4) H 12/28/24 11:28 Neut % (Auto) 77.1 % 12/27/24 11:50 Lymph % (Auto) 15.1 % 12/27/24 11:50 Forest % (Auto) 6.4 % 12/27/24 11:50 Eos % (Auto) 0.7 % 12/27/24 11:50 Baso % (Auto) 0.3 % 12/27/24 11:50 Neut # (Auto) 7.45 10^3/uL (1.8-7.7) 12/27/24 11:50 Lymph # (Auto) 1.5 10^3/uL (0.8-4.8) 12/27/24 11:50 Forest # (Auto) 0.6 10^3/uL (0.2-0.9) 12/27/24 11:50 Eos # (Auto) 0.1 10^3/uL (0.0-0.8) 12/27/24 11:50 Baso # (Auto) 0.0 10^3/uL (0.0-0.1) 12/27/24 11:50 Nucleated RBC % (auto) 0 % 12/27/24 11:50 Nucleated RBCs # 0.0 /100WBC 12/27/24 11:50 Urine Opiates Screen Negative ng/mL (Negative) 12/27/24 12:45 Ur Barbiturates Screen Negative ng/mL (Negative) 12/27/24 12:45 Ur Phencyclidine Scrn Negative ng/mL (Negative) 12/27/24 12:45 Ur Amphetamines Screen Negative ng/mL (Negative) 12/27/24 12:45 U Benzodiazepines Scrn Negative ng/mL (Negative) 12/27/24 12:45 Urine Cocaine Screen Negative ng/mL (Negative) 12/27/24 12:45 U Marijuana (THC) Screen Negative ng/mL (Negative) 12/27/24 12:45 Blood Type B Positive 12/27/24 11:50 Rho(D) Type Rh positive 12/27/24 11:50 Antibody Screen Negative 12/27/24 11:50 Vitals Last Vital Signs Temp 98.5 F 12/29/24 09:50 Pulse 100 12/29/24 09:46 Resp 16 12/29/24 04:15 BP 123/63 12/29/24 09:46 Pulse Ox 98 12/29/24 04:15 O2 Del Method Room Air 12/29/24 04:15 Discharge Plan Discharge Patient Disposition: Home Condition: Stable Prescriptions: New docusate sodium 100 mg Capsule 100 mg PO BID Qty: 60 0RF ibuprofen 800 mg Tablet 800 mg PO TID PRN (Reason: Abdominal Discomfort) Qty: 40 0RF ferrous sulfate 325 mg (65 mg iron) Tablet,Delayed Release (Dr/Ec) 325 mg PO DAILY Qty: 60 0RF Continued 1 tab PO DAILY Discharge Order = DC NOW: Discharge Order (Routine); Ordered 12/29/24 Ordered By: Aleja Rosado Referrals: Aleja Rosado MD [Primary Care Provider, [facility]] Referral Note: Discharge Diet: Usual diet Discharge Activity: Limit activity as instructed Patient Instructions: Depression (DC), Opioid Safety (DC), Preecla mpsia and Eclampsia After Delivery (GEN), Hemorrhage (DC), OB C- Section WHC, OB Discharge Report, OB Food/Drug Interaction Guide, OB Care at Home, Opioid Safety, Patient Portal & [place] Instructions, Abnormal Bleeding Activity Restrictions/Additional Instructions: No lifting greater than 10 pounds for 2 weeks. Keep incision clean and dry. Nothing per vagina for 6 weeks. Discharge Attestations Time Spent in Discharge Care*: less than 30 min Quality Metrics Clinical Quality Measures [ No reported AMI, CVA or VTE this stay] Coding Level of Care Code Acute Code for Chg Fwd Diagnoses Status post primary low transverse section Z98.891
[2024-12-29] MEDS: measles,mumps,rubella pf Vial (w/diluent) 0.5 ML SUBCUT (15:14)
[2024-12-29 15:19] VITALS: BP 127/67; PULSE 91
[2024-12-29 15:30] VITALS: BP 126/67; PULSE 91; RESP 16; TEMP 36.6
== END 2024-12-29 15:34 | disposition home or self-care (01) | DRG 788 ==
PROVIDERS: Admitting Provider Family Medicine; PCP Family Medicine; Visit Provider Family Medicine
PROC: 10D00Z1 Extraction of Products of Conception, Low, Open Approach (ICD-10-PCS; CPT 59514; principal; 2024-12-27 20:20)
DX: O32.4XX0 Maternal care for high head at term, not applicable or unspecified (principal); Z3A.39 39 weeks gestation of pregnancy; Z37.0 Single live birth
CPT/HCPCS: 36415; 51702; 59409; 80306; 85025; 85027; 86850; 86900; 90707; J0330; J1171; J1885; J2405; J2590; J2704; J2765; J2795; J3010; J3490; J7030; J7120; J7121; J9999

== ENCOUNTER 2025-01-19 15:05 | Emergency (ER) | payer OTHER, SELFPAY ==
[2025-01-19] VITALS (10 sets, daily range): BP systolic 102–130; BP diastolic 63–74; PULSE 97–115; RESP 17–18; TEMP 37.2; O2SAT 96–100; BMI 24.7
--- OUTSIDE RECORDS SUMMARY | 2025-01-19 15:09 | XMS_ITS | Patient Health Record ---
Author Organization [facility] Address [address] [place] [address] Care Team Providers Care Punching Machine Operator Name Role Phone Aleja Ny Primary Care Provider [phone] ALEJA [place] Unavailable Unavailable China Moran Unavailable [phone] Allergies Allergen (clinical drug ingredient) Drug/Non Drug Allergy documented on EMR Reaction Allergy Type Onset Date Status No Known Drug Allergy Unknown Drug Allergy Active Results Component Value Reference Range Notes Influenza A/B PCR-- [id number] Reviewed date:05/28/2024 01:05:14 PM Interpretation: Performing Lab: [...] Notes Problem Migraine without aura, not refractory ([id number]) Migraine without aura and without status migrainosus, [...] 05/24/2024 Encounters Encounter Location Date Provider Diagnosis [facility] [address] [facility] [address] [place] [address] 05/24/2024 Aleja Ny Influenza A J10.1 and Depression screen Z13.[address] [place] [address] 02/06/2024 China Moran Assessments Encounter Date Diagnosis [...] Insured Coverage Start Date Coverage End Date [employer] [address] [address] [place] [address] [id number] Maribel Courtney Self - patient is the insured [facility] [employer] [address] [place] [phone] [id number] [facility] Maribel Courtney Self - patient is the insured Medical (General) History Medical History History ICD Code migraine headaches H. Pylori endometriosis undefined headaches Hpylori Surgical History Surgery Date(Month/Year) surgical repair of endometriosis Left ankle fracture s/p ORIF ankle surgery Hospitalization History Reason Date(Month/Year) rotavirus see surgical history.
--- OUTSIDE RECORDS SUMMARY | 2025-01-19 15:09 | XMS_ITS | Data Portability ---
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 Diastolic BP Location Tested BP Systolic BP Type 70 117 Fetus Heart Rate Present A 145 Fetus Movement A Yes Comments Undressed. Wants to be check ed today. Flowsheet Date 12/25/2024 Brown Score Blood Edema Fundus Height Fundus Units Glucose Ketones Leukocytes Nitrite Labor Signs Protein Cervic Dilation Cervic Effacement Cervic Station 40 cm none 1+ Negative trace Type Weight in lbs Pre/Post Dialysis Refused Weight 161.211440871834 BP Diastolic BP Location Tested BP Systolic BP Type 70 100 Fetus Heart Rate Present A 130 Fetus Movement A Yes Comments /ballotable Flowsheet Date 01/03/2025 Brown Score Blood Edema Fundus Height Fundus Units Glucose Ketones Leukocytes Nitrite Labor Signs Protein Cervic Dilation Cervic Effacement Cervic Station Type Weight in lbs Pre/Post Dialysis Refused Weight 151.662309291864 BP Diastolic BP Location Tested BP Systolic BP Type 80 130 Fetus Heart Rate Present Fetus Movement Comments Menstrual History Last Menstrual Date Menses Monthly On Bcp Conception Prior Menses Frequency Hcg Plus Date Menarche Onset Age 1203/26/2024 false Genetic Screening And Infection History Question Response Note Patient's Age Will Be 35 Yea rs Or Older At Estimated Date of Delivery false Thalassemia (Chinese, Norwegian, Mediterranean, Or Background): MCV < 80 false Neural Tube Defect (Meningom yelocele, Spina Bifida, Or Anencephaly) false Congenital Heart Defect false Down Syndrome false Daniel-Sachs (eg, Presybeterian, Cajun , Greenlandic-Kittitian) false Roberto Disease false Sickle Cell Disease Or Trait () false Hemophilia Or Other Blood Disorders false Muscular Dystrophy false Cystic Fibrosis false Pinal's Chorea false Intellectual Disability/Autism false If Yes, Was Person Tested For Fragile X? false Other Inherited Genetic Or C hromosomal Disorder false Maternal Metabolic Disorder (eg, Type 1 Diabetes, PKU) false Patient Or Baby's Father Had A Child With Defects Not Listed Above false Recurrent Loss, Or A Stillbirth false Medications (including Suppl ements, Vitamins, Herbs, OTC Drugs), Illicit/Recreational Drugs, Alcohol true Diazepam, Hasnt ta milli any since she got . If Yes, Agent(s) And Strength/Dosage true Diazepam 2mg Any Other Genetic History false Live With Someone With TB Or Exposed To TB false Patient Or Partner Has Histo ry Of Genital Herpes false Rash Or Viral Illness Since Last Menstrual Period false History Of STD, Gonorrhea, C hlamydia, HPV, Syphilis false Other Infection History false History of HIV false History of Hepatitis false Prior GBS-infected child false Hemoglobinopathy Or Carrier false Other Structural Defect false Recent Travel History Outside of Country false Mental Retardation/Autism false Delivery Information Delivery Date Delivery Type Labor Anesthesia Weeks Gestation Incision Type Labor Labor Length Hrs Delivered By Post Complications Tubal Sterilization Discharge Date 5 39.3 Discharge Information Feeding Method Contraceptive Method Maternal HG B and HCT Levels
[2025-01-19 15:42] LABS: Hematocrit 27.3 % (36-47); Hemoglobin 8.60 g/dL (11.27-16.99); Mean Corpuscular HGB Conc 31.5 g/dL (30-55); Mean Corpuscular Hemoglobin 29.2 pg (27-33); Mean Corpuscular Volume 92.5 fl (85-98); Nucleated Red Blood Cells % 0 %; Platelet Count 539 10^3/cmm (157-399); Red Blood Count 2.95 10^6/uL (3.85-5.65); White Blood Count 13.56 10^3/uL (3.29-11.43)
[2025-01-19 15:58] LABS: Lactic Sepsis W/Reflex 0.7 mmol/L (0.5-2.2)
[2025-01-19 16:02] LABS: Glucose Urine UA Negative (Normal); Nitrate Urine Negative (Negative); Specific Gravity, Urine 1.029 (1.005-1.030)
[2025-01-19 16:03] LABS: Alanine Aminotransferase < 5 U/L (0-33); Albumin Level 3.4 g/dL (3.5-5.2); Alkaline Phosphatase 97 U/L (35-105); Anion Gap 15.8 (5-19); Aspartate Amino Transferase 8 U/L (0-32); Blood Urea Nitrogen 13 mg/dL (6-20); Calcium 8.7 mg/dL (8.5-10.5); Carbon Dioxide 26 mmol/L (22-29); Chloride 103 mmol/L (98-107); Creatinine Clr Calc Pharmacy 109.2840; Globulin 3.3 g/dL (1.3-4.6); Glucose 107 mg/dL (65-115); Osmolality Calculated 293 mOsm/kg (285-295); Potassium 3.8 mmol/L (3.5-5.1); Sodium 141 mmol/L (136-145); Total Protein 6.7 g/dL (6.6-8.7)
--- NOTE | 2025-01-19 16:12 | ED_ITS ---
Documented by User: PEPE Navarro 01/20/25 00:14 HPI - Abdominal Pain 2 General: Chief Complaint: Abdominal Pain Stated Complaint: abd pain (3wk postop) Time Seen by Provider: 01/19/25 15:12 Source: patient Mode of arrival: ambulatory Limitations: no limitations History of Present Illness: Patient is a 24-year-old female who presents to ED today along with her significant other for evaluation of abdominal pain. She states she is 3 weeks postop via section. She states she felt like she was recovering well until around 4 to 5 days ago when she began noticing worsening lower abdominal/pelvic pain. She feels like after her she had normal amounts of lochia but that this slowly improved. She did notice a small amount of bright red blood yesterday. She has not otherwise noticed purulent or odorous discharge. She is not having any UTI-like symptoms. She states she has felt feverish and has had some nausea. She has not been sexually active since surgery. MD elicited complaint: abdominal pain Pertinent past history: other (Recent section) Onset (ago): day(s) Pain Consistency: constant Location: Suprapubic and Pelvis Severity: moderate Radiation: none Migration to: no migration Exacerbating factors: nothing Relieving factors: nothing Associated Symptoms: Reports chills, fever(s) (subjective; temp 99.0 upon arrival) and nausea; Denies change in bowel habits, diarrhea, dysuria and vomiting Related Data Home Medications ?Medication ?Instructions ?Recorded ?Confirmed acetaminophen 500 mg tablet 1,000 mg PO QID PRN Fever Or Pain 01/19/25 01/19/25 (Tylenol Extra Strength) vits 168-iron 27 mg-folic 1 cap PO DAILY 12/2501/19/25 acid 800 mcg-omega3 235 mg capsule Previous Rx's ?Medication ?Instructions ?Recorded docusate sodium 100 mg capsule 100 mg PO BID #60 caps 12/29/24 ferrous sulfate 325 mg (65 mg 325 mg PO DAILY #60 tabs 12/29/24 iron) tablet,delayed release ibuprofen 800 mg tablet 800 mg PO TID PRN Abdominal 12/29/24 Discomfort #40 tabs Allergies Allergy/AdvReac Type Severity Reaction Status Date / Time No Known Allergies Allergy Verified 12/16/24 22:52 Review of Systems 2 Const: Reports: fever(s) (subjective; temp 99.0 upon arrival), chills and body aches Card: Denies: chest pain Resp: Denies: dyspnea GI: Reports: abdominal pain and nausea; Denies: vomiting, diarrhea or change in bowel habits : Denies: flank pain, difficulty voiding, dysuria, urinary frequency, urinary urgency or urinary hesitancy Musc: Denies: neck pain, back pain, extremity pain, extremity swelling, joint pain or joint swelling Skin/Breast: Denies: rash Neuro: Denies: headache(s), numbness in extremities, weakness in extremities, sensory changes or dizziness Physical Exam 2 Const: COMMON NORMALS: no acute distress, average body habitus, patient oriented x3, no limitations, alert and well nourished GENERAL APPEARANCE: c ooperative OTHER: appears pale-states her hemoglobin went from 12 down to 8 after her c section; she is on iron tablets HENMT: COMMON NORMALS: normocephalic and atraumatic HEAD & SCALP: normal to inspection, normocephalic and atraumatic Eye: COMMON NORMALS: no scleral icterus Resp: COMMON NORMALS: normal respiratory effort and clear to auscultation bilaterally AUSCULTATION: clear to auscultation bilaterally Cardio: COMMON NORMALS: regular rate and regular rhythm RATE: regular rate RHYTHM: regular rhythm GI: COMMON NORMALS: Normal to inspection, nondistended, normoactive bowel sounds present, Soft to palpation, No hepatosplenomegaly present and no masses INSPECTION: Yes normal to inspection AUSCULTATION: Yes normoactive bowel sounds PALPATION: Yes Soft to palpation, Yes Tenderness to palpation present (GI) (across lower abdomen/pelvis; c section incision looks well/healed) and Yes No hepatosplenomegaly present : COMMON NORMALS: Yes no CVA tenderness BLADDER/KIDNEY EXAM: Yes no CVA tenderness Back/Pelvis: COMMON NORMALS: no CVA tenderness, thoracic and lumbar spine normal to inspection and no thoracic nor lumbar tenderness Extremity: GENERAL: Yes normal exam except as noted Neuro: COMMON NORMALS: patient oriented x3, moves all extremities, no focal motor deficits and no sensory deficits noted SENSORIUM/ORIENTATION: Yes alert Skin: COMMON NORMALS: no rashes or lesions noted GENERAL SKIN EXAM: no rashes or lesions noted Course 2 Consultations: Consultation #1: Dr. Rosado-recommending transfer Consultation #2: Dr. Muir-FURNACE CHARGER [facility]-states he wants to review imaging and speak to radiologist-will call back-awaiting hours eventually did call back and will accept patient; requesting additional IV abx of doxycycline and flagyl Consultation #3: [facility]-transfer line called back after speaking with them about patient and states they decline patient-no reason given Additional Consultation(s): Dr. Ocasio[facility], recommends transferring to a facility with IR and she does not have IR coverage at [facility] over the weekend Vital Signs: Vital signs: Vital Signs Temperature 99.0 F 01/19/25 15:16 Pulse Rate 115 H 01/19/25 23:14 Respiratory Rate 18 01/19/25 18:28 Blood Pressure 125/66 01/19/25 23:14 Pulse Oximetry 98 01/19/25 23:14 Oxygen Delivery Me thod Room Air 01/19/25 23:14 MDM - Abdominal Pain Medical Decision Making Patient is a 24-year-old female 3 weeks with a section here for lower abdominal/pelvic pain. She has reported subjective fevers and nausea and generally feeling ill. Vital signs have been stable-mild tachycardia. Low- grade temp of 99.0. Blood work showing a white count of 13.56. Her hemoglobin is stable compared to hemoglobin at time of discharge from the hospital. She did have a drop in her hemoglobin from 12-8 after her section. She is taking iron supplementation. The rest of her blood work is unremarkable. Her lactic is normal. UA slightly suspicious for infection but there is some contamination. Ultrasound was initially ordered for further evaluation. Spoke with US Vasquez who visualized several fluid collections but inconclusive on location or what these were exactly. I then ordered CT scan. There were significant delays in vrad readings of these. She was eventually found to have extensive pelvic abscesses. I spoke to numerous specialists including her OB provider and 3 different GYNs. She was eventually accepted at [facility] by Dr. Campos. She has been started on IV abx. She has been stable. Requesting to go by private vehicle with her and -will contact [facility] to make sure they have no reservations with this. Patient originally seen by Mrs. Jerome?KARI Mclain. I agree with her history, evaluation, and management. Medical Records I reviewed the patient's medical records. Lab Data I reviewed the patient's lab results. 01/19/25 15:37 01/19/25 15:37 Labs/Radiology: Radiology Impressions Transvaginal US 01/19/25 16:15 IMPRESSION: Incompletely visualized left adnexal complex fluid collection extending from the left ovary measuring approximately 3 cm x 1.5 cm x 1.9 cm in better seen on separately dictated CT examination. Normal ovarian blood flow on color Doppler. ADDENDUM: 01/19/252122 Impression: In addition there is fluid within the endometrium and cervix as well as free fluid. Please see CT dictation performed same day suggestive of a left tubo-ovarian abscess. Abdomen/Pelvis CT 01/19/25 18:08 IMPRESSION: Left adnexal abscess measuring 3.4 x 5.4 cm with extension into the rectus sheath measuring 4.5 x 6.5 cm extending from the level of the pubic symphysis to the lower abdomen rectus muscles. Findings suggestive of tubo-ovarian abscess with rupture into the rectus abdominis. Laboratory Results WBC 13.56 10^3/uL (3.29-11.43) H 01/19/25 15:37 RBC 2.95 10^6/uL (3.85-5.65) L 01/19/25 15:37 Hgb 8.60 g/dL (11.27-16.99) L 01/19/25 15:37 Hct 27.3 % (36-47) L 01/19/25 15:37 MCV 92.5 fl (85-98) 01/19/25 15:37 MCH 29.2 pg (27-33) 01/19/25 15:37 MCHC 31.5 g/dL (30-55) 01/19/25 15:37 RDW 13.6 % (12.1-15.1) 01/19/25 15:37 Plt Count 539 10^3/cmm (157-399) H 01/19/25 15:37 MPV 10.3 fL (7.4-10.4) 01/19/25 15:37 Neut % (Auto) 79.2 % 01/19/25 15:37 Lymph % (Auto) 10.8 % 01/19/25 15:37 [place] % (Auto) 8.2 % 01/19/25 15:37 Eos % (Auto) 1.1 % 01/19/25 15:37 Baso % (Auto) 0.3 % 01/19/25 15:37 Neut # (Auto) 10.74 10^3/uL (1.8-7.7) H 01/19/25 15:37 Lymph # (Auto) 1.5 10^3/uL (0.8-4.8) 01/19/25 15:37 [place] # (Auto) 1.1 10^3/uL (0.2-0.9) H 01/19/25 15:37 Eos # (Auto) 0.2 10^3/uL (0.0-0.8) 01/19/25 15:37 Baso # (Auto) 0.0 10^3/uL (0.0-0.1) 01/19/25 15:37 Nucleated RBC % (auto) 0 % 01/19/25 15:37 Nucleated RBCs # 0.0 /100WBC 01/19/25 15:37 Sodium 141 mmol/L (136-145) 01/19/25 15:37 Potassium 3.8 mmol/L (3.5-5.1) 01/19/25 15:37 Chloride 103 mmol/L (98-107) 01/19/25 15:37 Carbon Dioxide 26 mmol/L (22-29) 01/19/25 15:37 Anion Gap 15.8 (5-19) 01/19/25 15:37 BUN 13 mg/dL (6-20) 01/19/25 15:37 Creatinine 0.7 mg/dL (0.5-0.9) 01/19/25 15:37 GFR Calculation 101.1 mL/min (90-130) 01/19/25 15:37 Glucose 107 mg/dL (65-115) 01/19/25 15:37 Calculated Osmolality 293 mOsm/kg (285-295) 01/19/25 15:37 Lactic Acid 0.7 mmol/L (0.5-2.2) 01/19/25 15:37 Calcium 8.7 mg/dL (8.5-10.5) 01/19/25 15:37 Total Bilirubin 0.4 mg/dL (0.15-1.2) 01/19/25 15:37 AST 8 U/L (0-32) 01/19/25 15:37 ALT < 5 U/L (0-33) 01/19/25 15:37 Alkaline Phosphatase 97 U/L (35-105) 01/19/25 15:37 Total Protein 6.7 g/dL (6.6-8.7) 01/19/25 15:37 Albumin 3.4 g/dL (3.5-5.2) L 01/19/25 15:37 Globulin 3.3 g/dL (1.3-4.6) 01/19/25 15:37 Urine Color Dark yellow (Yellow) A 01/19/25 15:57 Urine Appearance Cloudy (CLEAR) A 01/19/25 15:57 Urine pH 5.5 (5-7) 01/19/25 15:57 Ur Specific [place] 1.029 (1.005-1.030) 01/19/25 15:57 Urine Protein Trace (Negative) A 01/19/25 15:57 Urine Glucose (UA) Negative (Normal) 01/19/25 15:57 Urine Ketones Trace (Negative) 01/19/25 15:57 Urine Blood Non-haemolysed trace (Negative) 01/19/25 15:57 Urine Nitrate Negative (Negative) 01/19/25 15:57 Urine Bilirubin Negative (Negative) 01/19/25 15:57 Urine Urobilinogen 1.0 mg/dL (Negative) 01/19/25 15:57 Ur Leukocyte Esterase 2+ (Negative) A 01/19/25 15:57 Urine RBC 3-5 /hpf (0-2) 01/19/25 15:57 Urine WBC 21-50 /hpf (0-5) H 01/19/25 15:57 Ur Squamous Epith Cells 6-10 /hpf (0-5) 01/19/25 15:57 Amorphous Sediment Not Reportable 01/19/25 15:57 Urine Bacteria None seen /hpf (NONE) 01/19/25 15:57 Hyaline Casts 4.11 /lpf 01/19/25 15:57 Discharge Plan Discharge Patient Disposition: Xfer Short-Term Hosp Clinical Impression: Abscess of female pelvis, Major infection Condition: Stable Referrals: Aleja Rosado MD [Primary Care Provider, Family Practice] Print Language: [place] Island[place] Coding Level of Care Code ED Computed Tomography Technician for Chg Fwd Documented by User: Mika Hanks, 01/19/25 23:38 HPI - Abdominal Pain 2 General: Chief Complaint: Abdominal Pain Stated Complaint: abd pain (3wk postop) Time Seen by Provider: 01/19/25 15:12 Related Data Home Medications ?Medication ?Instructions ?Recorded ?Confirmed acetaminophen 500 mg tablet 1,000 mg PO QID PRN Fever Or Pain 01/19/25 01/19/25 (Tylenol Extra Strength) vits 168-iron 27 mg-folic 1 cap PO DAILY 12/2501/19/25 acid 800 mcg-omega3 235 mg capsule Previous Rx's ?Medication ?Instructions ?Recorded docusate sodium 100 mg capsule 100 mg PO BID #60 caps 12/29/24 ferrous sulfate 325 mg (65 mg 325 mg PO DAILY #60 tabs 12/29/24 iron) tablet,delayed release ibuprofen 800 mg tablet 800 mg PO TID PRN Abdominal 12/29/24 Discomfort #40 tabs Allergies Allergy/AdvReac Type Severity Reaction Status Date / Time No Known Allergies Allergy Verified 12/16/24 22:52 Course 2 Vital Signs: Vital signs: Vital Signs Temperature 99.0 F 01/19/25 15:16 Pulse Rate 115 H 01/19/25 23:14 Respiratory Rate 18 01/19/25 18:28 Blood Pressure 125/66 01/19/25 23:14 Pulse Oximetry 98 01/19/25 23:14 Oxygen Delivery Me thod Room Air 01/19/25 23:14 MDM - Abdominal Pain Medical Decision Making Patient originally seen by Mrs. Jerome?KARI Mclain. I agree with her history, evaluation, and management. Lab Data 01/19/25 15:37 01/19/25 15:37 Labs/Radiology: Radiology Impressions Transvaginal US 01/19/25 16:15 IMPRESSION: Incompletely visualized left adnexal complex fluid collection extending from the left ovary measuring approximately 3 cm x 1.5 cm x 1.9 cm in better seen on separately dictated CT examination. Normal ovarian blood flow on color Doppler. ADDENDUM: 01/19/252122 Impression: In addition there is fluid within the endometrium and cervix as well as free fluid. Please see CT dictation performed same day suggestive of a left tubo-ovarian abscess. Abdomen/Pelvis CT 01/19/25 18:08 IMPRESSION: Left adnexal abscess measuring 3.4 x 5.4 cm with extension into the rectus sheath measuring 4.5 x 6.5 cm extending from the level of the pubic symphysis to the lower abdomen rectus muscles. Findings suggestive of tubo-ovarian abscess with rupture into the rectus abdominis. Laboratory Results WBC 13.56 10^3/uL (3.29-11.43) H 01/19/25 15:37 RBC 2.95 10^6/uL (3.85-5.65) L 01/19/25 15:37 Hgb 8.60 g/dL (11.27-16.99) L 01/19/25 15:37 Hct 27.3 % (36-47) L 01/19/25 15:37 MCV 92.5 fl (85-98) 01/19/25 15:37 MCH 29.2 pg (27-33) 01/19/25 15:37 MCHC 31.5 g/dL (30-55) 01/19/25 15:37 RDW 13.6 % (12.1-15.1) 01/19/25 15:37 Plt Count 539 10^3/cmm (157-399) H 01/19/25 15:37 MPV 10.3 fL (7.4-10.4) 01/19/25 15:37 Neut % (Auto) 79.2 % 01/19/25 15:37 Lymph % (Auto) 10.8 % 01/19/25 15:37 [place] % (Auto) 8.2 % 01/19/25 15:37 Eos % (Auto) 1.1 % 01/19/25 15:37 Baso % (Auto) 0.3 % 01/19/25 15:37 Neut # (Auto) 10.74 10^3/uL (1.8-7.7) H 01/19/25 15:37 Lymph # (Auto) 1.5 10^3/uL (0.8-4.8) 01/19/25 15:37 [place] # (Auto) 1.1 10^3/uL (0.2-0.9) H 01/19/25 15:37 Eos # (Auto) 0.2 10^3/uL (0.0-0.8) 01/19/25 15:37 Baso # (Auto) 0.0 10^3/uL (0.0-0.1) 01/19/25 15:37 Nucleated RBC % (auto) 0 % 01/19/25 15:37 Nucleated RBCs # 0.0 /100WBC 01/19/25 15:37 Sodium 141 mmol/L (136-145) 01/19/25 15:37 Potassium 3.8 mmol/L (3.5-5.1) 01/19/25 15:37 Chloride 103 mmol/L (98-107) 01/19/25 15:37 Carbon Dioxide 26 mmol/L (22-29) 01/19/25 15:37 Anion Gap 15.8 (5-19) 01/19/25 15:37 BUN 13 mg/dL (6-20) 01/19/25 15:37 Creatinine 0.7 mg/dL (0.5-0.9) 01/19/25 15:37 GFR Calculation 101.1 mL/min (90-130) 01/19/25 15:37 Glucose 107 mg/dL (65-115) 01/19/25 15:37 Calculated Osmolality 293 mOsm/kg (285-295) 01/19/25 15:37 Lactic Acid 0.7 mmol/L (0.5-2.2) 01/19/25 15:37 Calcium 8.7 mg/dL (8.5-10.5) 01/19/25 15:37 Total Bilirubin 0.4 mg/dL (0.15-1.2) 01/19/25 15:37 AST 8 U/L (0-32) 01/19/25 15:37 ALT < 5 U/L (0-33) 01/19/25 15:37 Alkaline Phosphatase 97 U/L (35-105) 01/19/25 15:37 Total Protein 6.7 g/dL (6.6-8.7) 01/19/25 15:37 Albumin 3.4 g/dL (3.5-5.2) L 01/19/25 15:37 Globulin 3.3 g/dL (1.3-4.6) 01/19/25 15:37 Urine Color Dark yellow (Yellow) A 01/19/25 15:57 Urine Appearance Cloudy (CLEAR) A 01/19/25 15:57 Urine pH 5.5 (5-7) 01/19/25 15:57 Ur Specific [place] 1.029 (1.005-1.030) 01/19/25 15:57 Urine Protein Trace (Negative) A 01/19/25 15:57 Urine Glucose (UA) Negative (Normal) 01/19/25 15:57 Urine Ketones Trace (Negative) 01/19/25 15:57 Urine Blood Non-haemolysed trace (Negative) 01/19/25 15:57 Urine Nitrate Negative (Negative) 01/19/25 15:57 Urine Bilirubin Negative (Negative) 01/19/25 15:57 Urine Urobilinogen 1.0 mg/dL (Negative) 01/19/25 15:57 Ur Leukocyte Esterase 2+ (Negative) A 01/19/25 15:57 Urine RBC 3-5 /hpf (0-2) 01/19/25 15:57 Urine WBC 21-50 /hpf (0-5) H 01/19/25 15:57 Ur Squamous Epith Cells 6-10 /hpf (0-5) 01/19/25 15:57 Amorphous Sediment Not Reportable 01/19/25 15:57 Urine Bacteria None seen /hpf (NONE) 01/19/25 15:57 Hyaline Casts 4.11 /lpf 01/19/25 15:57 All radiology interpretation(s) finalized by discharge Discharge Plan Discharge Patient Disposition: Xfer Short-Term Hosp Clinical Impression: Abscess of female pelvis, Major infection Condition: Stable Referrals: Aleja Rosado MD [Primary Care Provider, [facility]] Print Language: [place] Coding Level of Care Code ED Computed Tomography Technician for Alfred Sue
[2025-01-19 16:14] LABS: Add Urine Microscopic? YES
--- NOTE | 2025-01-19 16:15 | USR_ITS ---
PROCEDURE INFORMATION: Exam: US Pelvis, Transvaginal, Non-Obstetric Exam date and time: 01/19/2025 5:36 PM Age: 24 years old Clinical indication: Pelvic pain; Prior surgery; Surgery date: <1 month; Surgery type: C section; Additional info: Post -3 wks c section; Pain/fevers TECHNIQUE: Imaging protocol: Real-time transvaginal pelvic (non-obstetric) ultrasound with image documentation. Transvaginal imaging was used for better evaluation of the endometrium, adnexa, and/or cervix. COMPARISON: US OB >= 14 weeks fetus [id number] 08/16/2024 9:47 AM FINDINGS: Uterus: Uterus is normal. Endometrial stripe is normal. Right ovary/adnexa: Normal. No mass. Normal ovarian blood flow on color Doppler. Left ovary/adnexa: Incompletely visualized left adnexal complex fluid collection extending from the left ovary measuring approximately 3 cm x 1.5 cm x 1.9 cm in better seen on separately dictated CT examination. Urinary bladder: Urinary bladder is limited. Intraperitoneal space: No free fluid. US/US transvaginal [id number] IMPRESSION: Incompletely visualized left adnexal complex fluid collection extending from the left ovary measuring approximately 3 cm x 1.5 cm x 1.9 cm in better seen on separately dictated CT examination. Normal ovarian blood flow on color Doppler.
--- NOTE | 2025-01-19 17:43 | PC.NURSE ---
pt changed into gown, instructed pt to empty bladder per US request.
--- NOTE | 2025-01-19 17:53 | PC.NURSE ---
NS infusion admin delayed d/t pt being in US
--- NOTE | 2025-01-19 18:08 | CTR_ITS ---
PROCEDURE INFORMATION: Exam: CT Abdomen And Pelvis With Contrast Exam date and time: 01/19/2025 6:46 PM Age: 24 years old Clinical indication: Abdominal pain; Localized; Lower; Prior surgery; Surgery date: <1 month; Surgery type: C section 3 weeks ago; Additional info: Low abdominal/pelvic pain; Abnor us-3 wks post part csection TECHNIQUE: Imaging protocol: Computed tomography of the abdomen and pelvis with contrast. Radiation optimization: All CT scans at this facility use at least one of these dose optimization techniques: automated exposure control; mA and/or kV adjustment per patient size (includes targeted exams where dose is matched to clinical indication); or iterative reconstruction. Contrast material: OMNIPAQUE 350; Contrast volume: 100 ml; Contrast route: INTRAVENOUS (IV); COMPARISON: US transvaginal [id number] 01/19/2025 5:36 PM RADIATION DOSE METRICS: Total DLP (mGy-cm): 493.81 FINDINGS: Liver: Normal. No mass. Gallbladder and biliary ducts: Normal. No calcified stones. No ductal dilation. Pancreas: Normal. No ductal dilation. Spleen: Normal. No splenomegaly. Adrenal glands: Normal. No mass. Kidneys and ureters: Normal. No hydronephrosis. Stomach and bowel: Mild diverticulosis in the colon without evidence of diverticulitis. Appendix: The appendix is normal. Intraperitoneal space: Unremarkable. No free air. No significant fluid collection. Vasculature: Unremarkable. No abdominal aortic aneurysm. Lymph nodes: Unremarkable. No enlarged lymph nodes. Urinary bladder: Unremarkable as visualized. Reproductive: Left adnexal abscess measuring 3.4 x 5.4 cm with extension into the rectus sheath measuring 4.5 x 6.5 cm extending from the pubic symphysis to the lower abdomen. Findings suggestive of tubo-ovarian abscess. Bones/joints: Unremarkable. No acute fracture. Soft tissues: See Reproductive finding. CT/CT abdomen pelvis w con* [id number] IMPRESSION: Left adnexal abscess measuring 3.4 x 5.4 cm with extension into the rectus sheath measuring 4.5 x 6.5 cm extending from the level of the pubic symphysis to the lower abdomen rectus muscles. Findings suggestive of tubo-ovarian abscess with rupture into the rectus abdominis.
[2025-01-19] MEDS: iohexol 350 mg/mL 500 mL Btl (per mL) IV (18:50)
[2025-01-19] MEDS: cefTRIAXone 1,000 mg SDV 1000 MG IVP (19:55)
[2025-01-20] MEDS: metroNIDAZOLE IV 500 MG/100 ML PREMIX 100 MG IV (00:07)
[2025-01-20] MEDS: doxycycline 100 MG in sodium chloride 0.9% (plus) 100 ML IV (00:08)
[2025-01-20 01:19] VITALS: BP 125/72; PULSE 112; RESP 16; O2SAT 97
[2025-01-20 01:21] VITALS: BP 116/62; PULSE 115; RESP 16; O2SAT 97
== END 2025-01-20 01:30 | disposition short-term general hospital (02) ==
PROVIDERS: Emergency Provider Physician Assistant; PCP Family Medicine
DX: O86.89 Other specified puerperal infections (principal); Z98.890 Other specified postprocedural states
CPT/HCPCS: 36415; 74177; 76830; 80053; 81001; 83605; 85025; 87040; 87086; 96365; 96367; 96375; 99285; J0696; J3490; J7030; J9999